=== PATIENT | male | born 1980 | race Caucasian/White ===

== ENCOUNTER 2024-05-02 15:34 | Emergency (ER) | payer SELFPAY ==
[2024-05-02 15:50] VITALS: BP 148/90; PULSE 77; TEMP 36.9; O2SAT 98; BMI 31.3
[2024-05-02] MEDS: TRIAMCINOLONE ACETONIDE 40 MG/ML VIAL IM (16:49)
[2024-05-02] MEDS: KETOROLAC TROMETHAMINE 30 MG/ML VIAL IM (16:49)
--- NOTE | 2024-05-02 18:23 | ED_ITS ---
HPI HPI - General Adult General Chief complaint: Neck Pain/Injury Stated complaint: Neck Pain, Shoulder Pain Time Seen by Provider: 05/02/24 15:57 Source: patient Mode of arrival: walk-in Limitations: no limitations History of Present Illness HPI narrative: 44-year-old male to the emergency department chief complaint of right-sided neck pain. Patient reports he has had this neck pain ongoing for the last month. He has seen his chiropractor to get adjusted several times and it did seem to help. Pain however came back yesterday and seems to be worse than typical. Radiates from the right side of his lower neck into his right shoulder. He denies any numbness, weakness, tingling. No chest pain or shortness of breath. Seems to be worse when he flexes his head forward or to the left. No trauma or injuries. Otherwise at his baseline health. Related Data Previous Rx's ?Medication ?Instructions ?Recorded oxycodone-acetaminophen 5 mg-325 1 tab PO Q6H PRN pain 3 days #12 05/02/24 mg tablet (Percocet) tabs Allergies Allergy/AdvReac Type Severity Reaction Status Date / Time Latex, Natural Rubber AdvReac Severe Rash Verified 05/02/24 15:55 Opioid HPI Opioid Management Most Recent Opioid Data: Last SEP Pain Assessment 05/02/24 16:49 Review of Systems ROS Status of ROS 10 or more systems reviewed and unremark able except as noted in history and below PFSH PFSH Social History Little interest or pleasure in doing things: not at all Feeling down, depressed, or hopeless: not at all Exam Narrative Exam Narrative: VITALS: I have reviewed the triage vital signs. GENERAL: Well developed, well appearing adult in no acute distress. NEURO: Alert and oriented. Moves all extremities. Face is symmetric and expressive. Exhibits Manager strength, finger abduction adduction, sensation intact over the hand. EYES: PERRL. No scleral icterus or conjunctival injection. No discharge. HENT: Normocephalic, atraumatic. Hearing is grossly intact. Nares grossly patent and without discharge. Mucous membranes moist. NECK: No JVD. Patient moves neck without restriction. No midline cervical tenderness CARDIO: Rhythm regular. Normal rate. No murmur, rub, or gallop. Pulses equal bilaterally in the upper and lower extremity. No lower extremity edema. PULM: Lungs clear to auscultation in all garsia. No wheezes, rales, or rhonchi. No conversational dyspnea. No splinting, stridor, or accessory muscle use. GI/: Abdomen is soft and non-tender. Normoactive bowel sounds. EXTREMITIES: Symmetric muscle bulk. No joint swelling. No clubbing, cyanosis, or deformity. SKIN: Warm and dry. Normal turgor. No rash or lesions appreciated. PSYCH: Mood, affect, and interaction is appropriate to the setting. Constitutional Vital Signs, click to edit/add: Last Vital Signs Temp 98.4 F 05/02/24 15:50 Pulse 77 05/02/24 15:50 Resp 20 05/02/24 15:50 BP 148/90 H 05/02/24 15:50 Pulse Ox 98 05/02/24 15:50 O2 Del Method Room Air 05/02/24 15:50 Course Vital Signs Vital signs: Vital Signs Temperature 98.4 F 05/02/24 15:50 Pulse Rate 77 05/02/24 15:50 Respiratory Rate 20 05/02/24 15:50 Blood Pressure 148/90 H 05/02/24 15:50 Pulse Oximetry 98 05/02/24 15:50 Oxygen Delivery Method Room Air 05/02/24 15:50 Temperature 98.4 F 05/02/24 15:50 Pulse Rate 77 05/02/24 15:50 Respiratory Rate 20 05/02/24 15:50 Blood Pressure 148/90 H 05/02/24 15:50 Pulse Oximetry 98 05/02/24 15:50 Oxygen Delivery Method Room Air 05/02/24 15:50 Medical Decision Making [facility] Narrative Medical decision making narrative: 44-year-old male to the emergency department with chief complaint of right-sided neck pain. Vital stable, the patient is afebrile. No trauma. No focal neurologic deficits. No indication for imaging at this time. Kenalog and Toradol shots were given. He will be continued on a short course of Percocet and instructed to use Tylenol or ibuprofen at home. He has muscle relaxers from previous episode. He is given spine surgeon to follow-up with. Return precautions were discussed. All questions were answered. The patient was discharged home Discharge Plan Discharge Chief Complaint: Neck Pain/Injury Clinical Impression: Cervical radiculopathy Patient Disposition: Home, Self-Care Time of Disposition Decision: 16:40 Condition: Good Mode of Transportation: Private Vehicle Prescriptions / Home Meds: New oxycodone-acetaminophen [Percocet] 5-325 mg tablet 1 tab PO Q6H PRN (Reason: pain) 3 Days Qty: 12 0RF Print Language: Khmer Instructions: Cervical Radiculopathy (ED) Additional Instructions: Call the office of your primary care doctor to arrange for follow-up within the above-stated timeframe. Your ED visit was focused on your acute issue and does not replace primary care. You should review your labs, imaging, and diagnoses from this ED visit with your primary care physician. There may be non-emergent/ incidental findings that need further evaluation. You should review your vital signs including blood pressure with your PCP. If you were prescribed medications you should discuss possible side-effects and drug interactions with your pharmacist. Call 911 or go to the nearest Emergency Department if you develop any new or worsening symptoms. Seek immediate medical attention if you develop: worsening headache, nausea, vomiting, confusion, weakness, loss of motion in your arms or legs, loss of control of your urine Referrals: Justine Rivers MD [Physician] - 1 week (Call Dr. Saint Ruth's office to establish follow-up for your neck pain.) MOUNA PAREDES [Primary Care Provider] - 1 week Discharge Date/Time: 05/02/24 16:57
== END 2024-05-02 16:57 | disposition home or self-care (01) ==
PROVIDERS: Emergency Provider Student in an Organized Health Care Education/Training Program; PCP Nurse Practitioner Family
DX: M54.12 Radiculopathy, cervical region (principal)
CPT/HCPCS: 96372; 99284; J1885; J3301

== ENCOUNTER 2025-02-19 02:07 | Emergency (ER) | payer SELFPAY ==
[2025-02-19 02:11] VITALS: BP 159/101; PULSE 74; TEMP 36.6; O2SAT 100; BMI 32.3
--- OUTSIDE RECORDS SUMMARY | 2025-02-19 02:13 | XMS_ITS | CCD ---
Author Organization [facility] Care Team Providers Care Visual Educator Name Role Phone Lana Raymond Unavailable DR DARIN SULLIVAN V Consulting Unavailable [facility], DR CHAMBERLAIN Primary Care Unavailable SHARDA POLANCO Admitting Unavailable SHARDA POLANCO Attending Unavailable ELMER ORDOÑEZ Consulting Unavailable NON STAFF Primary Care Provider UnavailQIANA Champagne Attending Provider NON STAFF Primary Care Unavailable Maida Smith Attending Unavailable Maida Smith Admitting Unavailable Dell Matos MD Primary Care Provider Lana Raymond MD Unavailable [phone] MAIDA SMITH Attending Unavailable RODO PIERRE Attending Unavailable MAIDA SMITH Referring Unavailable Unavailable Primary Care Provider Unavailhilario e Allergies Allergy Classification Reported Allergen(s) Allergy Type Date of Onset Reaction(s) Facility (4 sources) Latex Propensity to adverse reactions bumps on hands with gloves [facility] Other (1 source) Latex Drug allergy (disorder) 3 [facility] Repository Medications Current Medications Medication Drug Class(es) Dates Sig (Normalized) Sig (Original) acetaminophen 325 mg / oxyCODONE hydrochloride 5 mg oral tablet (1 source) Opioid Agonist Start: 4 take 1 tablet by mouth every six hours as needed oxyCODONE-acetaminoph en (Percocet) 5-325 MG tablet TAKE 1 TABLET BY MOUTH EVERY 6 HOURS NEEDED FOR 7 DAYS 05/08/2024 Active [id number] 200 actuat albuterol 0.09 mg/actuat metered dose inhaler (1 source) beta2-Adrenergic Agonist Start: 1 take 2 puff(s) by inhalation every four hours as needed Albuterol Sulfate HFA 108 (90 Base) MCG/ACT 2 puffs as needed Inhalation every 4 hrs May, Active amoxicillin 875 mg oral tablet (2 sources) Penicillin-class Antibacterial Start: 2 take 1 tablet by mouth every eight hours Amoxicillin 875 MG 1 tablet Orally every 8 hrs for 10 day(s) Mar, Active erythromycin 0.005 mg/mg ophthalmic ointment (1 source) Macrolide, Macrolide Antimicrobial Start: 5 Erythromycin 5 mg/gram (0.5 %) ointment Active 1 APPLIC EYE-RIGHT Four times daily 3.5 7 October 16, 2024 12:00am fluocinonide 0.5 mg/ml topical solution (4 sources) Corticosteroid Start: 4 fluocinonide (Lidex) 0.05 % external solution Indications: Other seborrheic dermatitis Apply to affected areas on the scalp, up to twice a day when flared, 30 day supply 60 mL 04/06/2024 Active hydrocortisone 10 mg/ml / neomycin 3.5 mg/ml / polymyxin b [id number] unt/ml otic solution (3 sources) Aminoglycoside Antibacterial, Polymyxin-class Antibacterial, Corticosteroid Start: 2 [id number]-[id number] 4 drops into affected ear Otic Three times a day for 7 day(s) Feb, Active ketoconazole 20 mg/ml topical cream (4 sources) Azole Antifungal Start: 4 ketoconazole (NIZOral) 2 % cream Indications: Other seborrheic dermatitis Apply thin layer to the face, daily, 30 day supply 15 g 04/06/2024 Active methylPREDNISolone 4 mg oral tablet (3 sources) Corticosteroid Start: 2 methylPREDNISolone 4 MG as directed Orally Once a day for 6 days Mar, Active Start: 05-26-2021 methylPREDNISo lone 4 MG as directed Orally Once a day for 6 days May, Active Problems Active Problems Problem Classification Problem Date Documented Da te Episodic/Chronic Abdominal pain (4 sources) Unspecified abdominal pain; Translations: [Left lower quadrant pain] Onset: 2 Episodic Disorders of lipid metabolism (5 sources) Hyperlipidemia; Translations: [Hyperlipidemia, unspecified] 10-16-2024 Chronic Disorders of teeth and jaw (5 sources) Toothache; Translations: [Other specified disorders of teeth and supporting structures] 10-16-2024 Episodic Diverticulosis and diverticulitis (1 source) Diverticulitis of large intestine without perforation or abscess without bleeding; Translations: [DVTRCLI LG INT NO PERF/ABSC W/O BL] Onset: 2 Chronic Esophageal disorders (5 sources) Gastroesophageal reflux disease; Translations: [Gastro-esophageal reflux disease without esophagitis] 10-16-2024 Chronic Essential hypertension (1 source) Hypertensive disorder; Translations: [Essential (primary) hypertension] 10-16-2024 Chronic Gastritis and duodenitis (5 sources) Chronic gastritis; Translations: [Unspecified chronic gastritis without bleeding] 10-16-2024 Chronic Gastrointestinal hemorrhage (1 source) Hematochezia; Translations: [Melena] 10-16-2024 Episodic Joint disorders and dislocations; trauma-related (1 source) Tear of fibrocartilage of joint; Translations: [Unspecified tear of unspecified meniscus, current injury, unspecified knee, initial encounter] 10-16-2024 Episodic Osteoarthritis (5 sources) Traumatic arthropathy-knee; 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, unspecified knee] 10-16-2024 Chronic Other circulatory disease (4 sources) Elevated blood pressure; Translations: [Elevated blood-pressure reading, without diagnosis of hypertension] Episodic Other connective tissue disease (4 sources) Pain in limb; Translations: [Pain in right toe(s)] Episodic Other connective tissue disease (1 source) Pain in toe; Translations: [Pain in right toe(s)] 10-16-2024 Episodic Other ear and sense organ disorders (2 sources) Impacted cerumen, left ear Onset: 2 Resolved: 2 Episodic Other eye disorders (2 sources) Xanthelasma; Translations: [Xanthelasma of unspecified eye, unspecified eyelid] 04-06-2024 Episodic Other inflammatory condition of skin (2 sources) Seborrheic dermatitis; Translations: [Other seborrheic dermatitis] 04-06-2024 Episodic Other non-traumatic joint disorders (4 sources) Shoulder joint pain; Translations: [Pain in right shoulder] Episodic Other non-traumatic joint disorders (1 source) Pain in right shoulder; Translations: [Right shoulder pain] 10-16-2024 Episodic Other skin disorders (4 sources) Skin lesion; Translations: [Disorder of the skin and subcutaneous tissue, unspecified] 10-16-2024 Episodic Other skin disorders (1 source) Other hypertrophic disorders of the skin; Translations: [Other hypertrophic disorders of the skin] Onset: 4 Episodic Other skin disorders (2 sources) Hidradenitis; Translations: [Hidradenitis suppurativa] Onset: 4 05-17-2024 Episodic Other skin disorders (2 sources) Inflamed seborrheic keratosis; Translations: [Inflamed seborrheic keratosis] 04-06-2024 Episodic Other skin disorders (2 sources) Skin tag; Translations: [Other hypertrophic disorders of the skin] 04-06-2024 Episodic Other skin disorders (2 sources) Epidermoid cyst; Translations: [Epidermal cyst] 04-06-2024 Episodic Other upper respiratory infections (5 sources) Chronic sinusitis; Translations: [Chronic sinusitis, unspecified] 10-16-2024 Chronic Otitis media and related conditions (2 sources) Acute serous otitis media, left ear Onset: 2 Resolved: 2 Episodic Spondylosis; intervertebral disc disorders; other back problems (7 sources) Neck pain; Translations: [Cervicalgia] 10-16-2024 Episodic Substance-related disorders (6 sources) Nicotine dependence; Translations: [Nicotine dependence, unspecified, uncomplicated] Onset: 2 10-16-2024 Chronic Viral infection (5 sources) Condyloma ; Translations: [Anogenital (venereal) warts] 10-16-2024 Episodic Past or Other Problems Problem Classification Problem Date Documented Da te Episodic/Chronic Chronic obstructive pulmonary disease and bronchiectasis (1 source) Bronchitis, not specified as acute or chronic Onset: 05-26-2021 Resolved: 05-26-2021 Episodic Immunizations and screening for infectious disease (1 source) Contact with and (suspected) exposure to other viral communicable diseases Onset: 05-26-2021 Resolved: 05-26-2021 Episodic Other ear and sense organ disorders (1 source) Unspecified acute noninfective otitis externa, right ear Onset: 03-23-2022 Resolved: 03-23-2022 Episodic Other skin disorders (1 source) Disorder of the skin and subcutaneous tissue, unspecified Onset: 03-23-2022 Resolved: 03-23-2022 Episodic Viral infection (1 source) COVID-19 Onset: 05-26-2021 Resolved: 05-26-2021 Results Test Name Value Interpretation Reference Range Facility Triglyceride [Mass/Vol]on Interpretation and review of laboratory results Abnormal [facility] Triglyceride [Mass/volume] i n Serum or PlasmaOrdered By: Maida Smith on 04-07-2024 Triglyceride [Mass/Vol] 219 mg/dL High 35-149 [facility] Comment on above: TRIG ATP III CLASSIF ICATIONTRIG less than 150 mg/dL NormalTRIG 150-199 mg/dL Borderline highTRIG 200-500 mg/dL High TRIG greater than 500 mg/dL Very highStandard traceable to the Center for Disease Conrtrol and Prevention (CDC) test method. Result Comment: TRIG ATP III CLASSIFICATION TRIG less than 150 mg/dL Normal TRIG 150-199 mg/dL Borderline high TRIG 200-500 mg/dL High TRIG greater than 500 mg/dL Very high Standard traceable to the Center for Disease Conrtrol and Prevention (CDC) test method. PERFORMED BY: [place] [address] PATHOLOGIST BORDER GUARD TYLOR SONI M.D. Performed By: #### T RIG #### [address] Triglycerideson 04-07-2024 Triglyceride [Mass/Vol] 219 mg/dL High 35 - 149 mg/dL [facility] Comment on above: TRIG ATP III CLASSIF ICATION TRIG less than 150 mg/dL Normal TRIG 150-199 mg/dL Borderline high TRIG 200-500 mg/dL High TRIG greater than 500 mg/dL Very high Standard traceable to the Center for Disease Conrtrol and Prevention (CDC) test method. No Panel Informationon 04-06 [facility] CBC AUTO DIFFon 03-03-2022 BASO # 0.1 103/ul Normal 0.0-0.1 [facility] Comment on above: Performed By: #### C BC #### [facility] [address] [place] [address] Dr. Paula Hassan Basophils/100 WBC (Bld) 0.4 % Normal 0.2-2.0 [facility] Comment on above: Performed By: #### C BC #### [facility] [address] [place] [address] Dr. Paula Hassan EO # 0.1 103/ul Normal 0.0-0.7 [facility] Comment on above: Performed By: #### C BC #### [facility] [address] [place] [address] Dr. Paula Hassan Eosinophils/100 WBC (Bld) 1.0 % Normal 0.9-7.0 [facility] Comment on above: Performed By: #### C BC #### [facility] [address] [place] [address] Dr. Paula Hassan Erythrocyte distribution width (RBC) [Ratio] 12.3 % Normal 11.0-15.0 [facility] Comment on above: Performed By: #### C BC #### [facility] [address] [place] [address] Dr. Paula Hassan Hematocrit (Bld) [Volume fraction] 46.5 % Normal 42.0-54.0 [facility] Comment on above: Performed By: #### C BC #### [facility] [address] [place] [address] Dr. Paula Hassan Hemoglobin (Bld) [Mass/Vol] 15.6 g/dL Normal 14.0-18.0 [facility] Comment on above: Performed By: #### C BC #### [facility] [address] [place] [address] Dr. Paula Hassan IG # 0.05 10e3/ul Critically high 0.00-0.03 [facility] Comment on above: Performed By: #### C BC #### [facility] [address] [place] [address] Dr. Paula Hassan IG % 0.4 % Normal 0.0-0.5 [facility] Comment on above: Performed By: #### C BC #### [facility] [address] [place] [address] Dr. Paula Hassan LYMPH # 2.5 103/ul Normal 1.2-3.8 [facility] Comment on above: Performed By: #### C BC #### [facility] [address] [place] [address] Dr. Paula Hassan Lymphocytes/100 WBC (Bld) 18.5 % Critically low 20.5-60.0 [facility] Comment on above: Performed By: #### C BC #### [facility] [address] [place] [address] Dr. Paula Hassan MANUAL DIFF REQ NO Normal [facility] Comment on above: Performed By: #### C BC #### [facility] [address] [place] [address] Dr. Paula Hassan MCH (RBC) [Entitic mass] 29.9 pg Normal 25.9-34.0 [facility] Comment on above: Performed By: #### C BC #### [facility] [address] [place] [address] Dr. Paula Hassan MCHC (RBC) [Mass/Vol] 33.5 g/dL Normal 29.9-35.2 [facility] Comment on above: Performed By: #### C BC #### [facility] [address] [place] [address] Dr. Paula Hassan MCV (RBC) [Entitic vol] 89.3 fL Normal 80.0-94.0 [facility] Comment on above: Performed By: #### C BC #### [facility] [address] [place] [address] Dr. Paula Hassan MONO # 1.0 103/ul Critically high 0.3-0.8 [facility] Comment on above: Performed By: #### C BC #### [facility] [address] [place] [address] Dr. Paula Hassan Monocytes/100 WBC (Bld) 7.7 % Normal 1.7-12.0 [facility] Comment on above: Performed By: #### C BC #### [facility] [address] [place] [address] Dr. Paula Hassan NEUT # 9.8 103/ul Critically high 1.4-6.5 [facility] Comment on above: Performed By: #### C BC #### [facility] [address] [place] [address] Dr. Paula Hassan Neutrophils/100 WBC (Bld) 72.0 % Normal 43.0-75.0 [facility] Comment on above: Performed By: #### C BC #### [facility] [address] [place] [address] Dr. Paula Hassan Platelet mean volume (Bld) [Entitic vol] 9.7 fL Normal 9.5-13.5 [facility] Comment on above: Performed By: #### C BC #### [facility] [address] [place] [address] Dr. Paula Hassan PLT 389 103/ul Normal 150-450 [facility] Comment on above: Performed By: #### C BC #### [facility] [address] [place] [address] Dr. Paula Hassan RBC 5.21 106/ul Normal 4.70-6.10 [facility] Comment on above: Performed By: #### C BC #### [facility] [address] [place], [place] [id number] Dr. Paula Hassan WBC 13.6 103/ul Critically high 4.0-11.0 [facility] Comment on above: Performed By: #### C BC #### [facility] [address] [place] [address] ABD/PELVIS WO CONon 03-03 CT ABD/PELVIS WO CON EXAMINATION: CT ABD/PELVIS WO CON, 03/03/2022 1:40 PM EDT HISTORY: Left lower quadrant pain COMPARISON: None. TECHNIQUE: CT scan of the abdomen and pelvis was performed without IV contrast. CT dose reduction technique was used, including Automated Exposure Control. FINDINGS: LUNG BASES: No visible pulmonary or pleural disease. LIVER: Diffuse hypoattenuation consistent with hepatic steatosis. Focal sparing at the gallbladder fossa BILIARY: No dilatation or calcification. PANCREAS: No lesion, fluid collection, ductal dilatation, or atrophy. SPLEEN: No enlargement or focal lesion. ADRENALS: No mass or enlargement. KIDNEYS: No mass, obstruction, or calcification. BOWEL/MESENTERY: Wall thickening of the mid sigmoid colon with mesenteric stranding and a small amount of fluid in the left paracolic gutter. Underlying mild diverticulosis. Nonobstructive bowel gas pattern. Surgical clips likely from prior appendectomy. AORTA/VASCULAR: No aortic aneurysm. Mild atherosclerosis. RETROPERITONEUM: No mass or adenopathy. LYMPH NODES: No adenopathy. URINARY BLADDER: No visible focal wall thickening, lesion, or calculus. PELVIC ORGANS: No visible mass. Pelvic organs appropriate for patient age. ABDOMINAL WALL: No mass or hernia. BONES: No bony lesion or fracture. OTHER: Negative. IMPRESSION: Sigmoid colon diverticulitis. No focal abscess collection is observed Hepatic steatosis Electronically authenticated by: DARIN SULLIVAN Date: 2022-03-03 14:25 Normal [facility] LIPASEon 03-03-2022 Lipase [Catalytic activity/Vol] 108.0 U/L Normal 73.0-393.0 [facility] Comment on above: Performed By: #### C MP, LIPA #### [facility] [address] [place] [address] Dr. Paula Hassan PROF 14(COMP METB)on 022 Albumin [Mass/Vol] 3.6 g/dL Normal 3.4-5.0 [facility] Comment on above: Performed By: #### C MP, LIPA #### [facility] [address] [place] [address] Dr. Paula Hassan Albumin/Globulin [Mass ratio] 0.8 {ratio} Normal [facility] Comment on above: Performed By: #### C MP, LIPA #### [facility] [address] [place] [address] Dr. Paula Hassan ALP [Catalytic activity/Vol] 97 U/L Normal 46-116 [facility] Comment on above: Performed By: #### C MP, LIPA #### [facility] [address] [place] [address] Dr. Paula Hassan ALT [Catalytic activity/Vol] 23 U/L Normal 16-63 [facility] Comment on above: Performed By: #### C MP, LIPA #### [facility] [address] [address] [address] Paula Hassan Anion gap [Moles/Vol] 12.3 mmol/L Normal [facility] Comment on above: Performed By: #### C MP, LIPA #### [facility] [address] [address] [address] Paula Hassan AST [Catalytic activity/Vol] 11 U/L Critically low 15-37 [facility] Comment on above: Performed By: #### C MP, LIPA #### [facility] [address] [place] [address] Dr. Paula Hassan Bilirubin [Mass/Vol] 0.9 mg/dL Normal 0.2-1.0 [facility] Comment on above: Performed By: #### C MP, LIPA #### [facility] [address] [place] [address] Dr. Paula Hassan Calcium [Mass/Vol] 9.1 mg/dL Normal 8.5-10.1 [facility] Comment on above: Performed By: #### C MP, LIPA #### [facility] [address] [place] [address] Dr. Paula Hassan Chloride [Moles/Vol] 100 mmol/L Normal 98-107 [facility] Comment on above: Performed By: #### C MP, LIPA #### [facility] [address] [place] [address] Dr. Paula Hassan CO2 [Moles/Vol] 24.5 mmol/L Normal 21.0-32.0 [facility] Comment on above: Performed By: #### C MP, LIPA #### [facility] [address] [place] [address] Dr. Paula Hassan Creatinine [Mass/Vol] 1.12 mg/dL Normal 0.70-1.30 [facility] Comment on above: Performed By: #### C MP, LIPA #### [facility] [address] [place] [address] Dr. Paula Hassan EGFR-AF CANADIAN >60 Normal >=60 [facility] Comment on above: Performed By: #### C MP, LIPA #### [facility] [address] [address] [address] Paula Hassan EGFR-NON AF CANADIAN >60 Normal >=60 [facility] Comment on above: Performed By: #### C MP, LIPA #### [facility] [address] [address] [address] Paula Hassan Globulin (S) [Mass/Vol] 4.5 g/dL Normal [facility] Comment on above: Performed By: #### C MP, LIPA #### [facility] [address] [address] [address] Paula Hassan Glucose [Mass/Vol] 135 mg/dL Critically high 74-106 [facility] Comment on above: Performed By: #### C MP, LIPA #### [facility] [address] [place] [address] Dr. Paula Hassan Potassium [Moles/Vol] 3.8 mmol/L Normal 3.5-5.1 [facility] Comment on above: Performed By: #### C MP, LIPA #### [facility] [address] [place] [address] Dr. Paula Hassan Protein [Mass/Vol] 8.1 g/dL Normal 6.4-8.2 [facility] Comment on above: Performed By: #### C MP, LIPA #### [facility] [address] [place] [address] Dr. Paula Hassan Sodium [Moles/Vol] 133 mmol/L Critically low 136-145 [facility] Comment on above: Performed By: #### C MP, LIPA #### [facility] [address] [address] [address] Paula Hassan Urea nitrogen [Mass/Vol] 10.0 mg/dL Normal 7.0-18.0 [facility] Comment on above: Performed By: #### C MP, LIPA #### [facility] [address] [place] [address] Dr. Paula Hassan Urea nitrogen/Creatinine [Mass ratio] 8.9 mg/mg Normal [facility] Comment on above: Performed By: #### C MP, LIPA #### [facility] [address] [place] [address] Dr. Paula HARDEN Quick Testingon 2020 Result Positive [facility] Other Vital Signs Date Time Vital Sign Value Performing Clinician Facility 10-16-2024 10:45-0400 Body height 180.[address] [facility] 10-16-2024 10:45-0400 Body mass index (BMI) [Ratio] 31.9 kg/m2 [facility] 10-16-2024 10:45-0400 Body temperature 98.1 [degF] [facility] 10-16-2024 10:45-0400 Body weight 103.[address] [facility] 10-16-2024 10:45-0400 Diastolic blood pressure 87 mm[Hg] [facility] 10-16-2024 10:45-0400 Heart rate 74 /min [facility] 10-16-2024 10:45-0400 Respiratory rate 18 /min [facility] 10-16-2024 10:45-0400 SaO2% (BldA) [Mass fraction] 99 % [facility] 10-16-2024 10:45-0400 Systolic blood pressure 132 mm[Hg] [facility] 05-17-2024 10:11-0400 Body height 179.1 cm [employer] Work Phone: [facility] 05-17-2024 10:11-0400 Body mass index (BMI) [Ratio] 30.67 kg/m2 [employer] Work Phone: [facility] 05-17-2024 10:11-0400 Body weight 98.34 kg [employer] Work Phone: [facility] 05-17-2024 10:11-0400 Diastolic blood pressure 98 mm[Hg] [employer] Work Phone: [facility] 05-17-2024 10:11-0400 Systolic blood pressure 144 mm[Hg] [employer] Work Phone: [facility] 04-13-2022 17:55-0400 Body height 177.8 cm Lana Lopezault Other [facility] Other 04-13-2022 17:55-0400 Body mass index (BMI) [Ratio] 32.14 kg/m2 Lana Raymond Other [facility] Other 04-13-2022 17:55-0400 Body temperature 97.9 [degF] Lana Raymond Other [facility] Other 04-13-2022 17:55-0400 Body weight 101.61 kg Lana Raymond Other [facility] Other 04-13-2022 17:55-0400 Diastolic blood pressure 92 mm[Hg] Lana Lopezault Other [facility] Other 04-13-2022 17:55-0400 Respiratory rate 16 /min Lana Lopezault Other [facility] Other 04-13-2022 17:55-0400 SaO2% (BldA) [Mass fraction] 99 % Lana Lopezault Other [facility] Other 04-13-2022 17:55-0400 Systolic blood pressure 129 mm[Hg] Lana Lopezault Other [facility] Other 03-23-2022 15:30-0400 Body height 177.8 cm Lana Lopezault Other [facility] Other 03-23-2022 15:30-0400 Body mass index (BMI) [Ratio] 32.14 kg/m2 Lana Raymond Other [facility] Other 03-23-2022 15:30-0400 Body temperature 97.6 [degF] Lana Raymond Other [facility] Other 03-23-2022 15:30-0400 Body weight 101.61 kg Lana Raymond Other [facility] Other 03-23-2022 15:30-0400 Diastolic blood pressure 77 mm[Hg] Lana Raymond Other [facility] Other 03-23-2022 15:30-0400 Respiratory rate 16 /min Lana Raymond Other [facility] Other 03-23-2022 15:30-0400 SaO2% (BldA) [Mass fraction] 99 % Lana Raymond Other [facility] Other 03-23-2022 15:30-0400 Systolic blood pressure 137 mm[Hg] Lana Raymond Other [facility] Other 05-26-2021 15:00-0400 Body height 177.8 cm Lana Raymond Other [facility] Other 05-26-2021 15:00-0400 Body mass index (BMI) [Ratio] 32.28 kg/m2 Lana Raymond Other [facility] Other 05-26-2021 15:00-0400 Body temperature 97.5 [degF] Lana Lopezault Other [facility] Other 05-26-2021 15:00-0400 Body weight 102.06 kg Lana Raymond Other [facility] Other 05-26-2021 15:00-0400 SaO2% (BldA) [Mass fraction] 98 % Lana Raymond Other [facility] Other Encounters Encounter Date Encounter Type Care Provider Facility Start: 10-16-2024 End: 10-16-2024 ambulatory [facility] Work Phone: Start: 10-16-2024 End: 10-16-2024 Patient encounter procedure [facility] Work Phone: Start: 05-17-2024 End: 05-17-2024 Office outpatient new 45 minutes Rodo Pierre DO Work Phone: [facility] Comment on above: Hidradenitis Start: 05-17-2024 End: 05-17-2024 ambulatory RODO PIERRE Not Available Start: 04-07-2024 End: 04-07-2024 External Result Encounter Maida A Felter MATERIALS MANAGEMENT MANAGER-[employer] Work Phone: [facility] Unsolicited Start: 04-07-2024 End: 04-07-2024 External Result Encounter Maida A Felter MATERIALS MANAGEMENT MANAGER-[employer] PROFESS[employer] Work Phone: [facility] Unsolicited Start: 04-07-2024 End: 04-07-2024 Patient encounter procedure [facility] [place] Work Phone: Start: 04-07-2024 End: 04-07-2024 ambulatory NON STAFF [facility] Work Phone: Start: 04-06-2024 End: 04-06-2024 Bamboo flowsheet Maida A Felter MATERIALS MANAGEMENT MANAGER-[employer] PROFESSOR Work Phone: [facility] Start: 04-06-2024 End: 04-06-2024 Bamboo flowsheet Maida A Felter MATERIALS MANAGEMENT MANAGER-[employer] PROFESSOR Work Phone: [facility] Start: 04-06-2024 End: 04-06-2024 ambulatory MAIDA SMITH Not Available Start: 04-06-2024 End: 04-06-2024 Office outpatient visit 15 minutes Maida Smith MATERIALS MANAGEMENT MANAGER-[employer] PROFESSOR Work Phone: [facility] Comment on above: Seborrheic keratosis , inflamed; Other seborrheic dermatitis; Inflamed skin tag; Xanthelasma; EIC (epidermal inclusion cyst) Start: 04-13-2022 End: 04-13-2022 ambulatory Lana Mandi Other [facility] Other Start: 04-13-2022 Office outpatient vi sit 25 minutes Lana Mandi [facility] Start: 03-23-2022 End: 03-23-2022 ambulatory Lana Raymond Other [facility] Other Start: 03-23-2022 Office outpatient vi sit 15 minutes Lana Mandi [facility] Start: 03-03-2022 End: 03-03-[address] DARIN SULLIVAN Facility:[facility] Start: 05-26-2021 End: 05-26-2021 ambulatory Lana Mandi Other [facility] Other Start: 05-26-2021 Office outpatient vi sit 15 minutes Lana Mandi [facility] Procedures Date Procedure Procedure Detail Performing Clinician Start: 04-07-2024 Assay of triglycerides Maida Smith MATERIALS MANAGEMENT MANAGER-[employer] PROFESSOR Work Phone: Start: 04-06-2024 CRYOTHERAPY SKIN LESION Maida Smith MATERIALS MANAGEMENT MANAGER-[employer] PROFESSOR Work Phone: Plan of Treatment Date Care Activity Detail Author Start: 04-09-2025 End: 04-09-2025 Patient encounter procedure 04/09/2025 1:00 PM EDT Office Visit [facility] [address] [place] [address] Maida Smith, MATERIALS MANAGEMENT MANAGER-[employer] HISTORY PROFESSOR [address] [place] [address] [facility] Start: 04-06-2024 End: 04-06-2025 Triglyceride [Mass/volume] in Serum or Plasma Triglycerides Lab Routine Inflamed skin tag Expected: 04/06/2024 (Approximate), Expires: 04/06/2025 [facility] Work Phone: Comment on above: Expected: 04/06/2024 (Approximate), Expires: 04/06/2025 Payers Date Payer Category Payer Self-pay [id number] 1980 Unknown [id number] 1959 Unknown [id number] Medicaid Medicaid [id number] Unknown [place] KAYLA [id number] Unknown [id number] Social History Date Type Detail Facility Unknown if ever smoked [facility] Other Start: 04-06-2024 End: 05-17-2024 Sex Assigned At [facility] Other Start: 04-07-2024 End: 10-16-2024 Tobacco smoking status [facility] Smoker (finding) [facility] Start: 1980 Sex Assigned At Male [facility] Start: 05-17-2024 Tobacco smoking status [facility] Smokes tobacco daily [facility] Work Phone: History of tobacco use Cigarette Smoker [facility] Start: 04-06-2024 End: 05-17-2024 Tobacco use and exposure Smokeless tobacco non-user [facility] Start: 05-17-2024 Alcoholic beverage intake Ex-drinker (finding) [facility] Start: 04-06-2024 End: 05-17-2024 History of Social function [facility] Start: 1980 Sex assigned at Not on file [facility] Tobacco smoking status [facility] Tobacco smoking consumption unknown [facility] Start: 04-06-2024 Tobacco smoking status [facility] Never smoked tobacco [facility] Start: 10-16-2024 Sex Male (finding) [facility] History of Present illness Narrative 05-17-2024 Rodo Pierre, DO - 05/17/2024 10:15 AM EDT Note Date & Type Note Facility 05-17-2024 History of Presen t illness Narrative Images from the original note were not included. Daniel Garay 1980 Daniel Garay is a 44 y.o. male presents with chief complaint of Consult (Buttock cyst) HPI: HPI Patient has had episodes of cysts or lumps in his inner thighs near the perineum. Said about 2 weeks ago it was pretty bad it has resolved. It will swell a little bit and turned firm but it never has any drainage. He has never been on any antibiotics for this. He said it happens about 2 times per year for a couple years. He does smoke about half pack to a pack of cigarettes per day. He is borderline diabetic or did have elevated sugars and was told that if his numbers were better he was going to be put on medication this winter. These areas are basically resolved currently. He does not get this at any other location. He would like to quit smoking, he says it is very difficult to do. He said that he was the quit drinking pop and he quit using cocaine without any problems But smoking is much harder. SUBJECTIVE: MEDICATIONS: ALLERGIES Current Outpatient Medications Medication Instructions fluocinonide (Lidex) 0.05 % external solution Apply to affected areas on the scalp, up to twice a day when flared, 30 day supply ketoconazole (NIZOral) 2 % cream Apply thin layer to the face, daily, 30 day supply oxyCODONE-acetaminophen (Percocet) 5-325 MG tablet TAKE 1 TABLET BY MOUTH EVERY 6 HOURS NEEDED FOR 7 DAYS No Known Allergies PAST MEDICAL HISTORY: SOCIAL HISTORY SURGICAL HISTORY: No past medical history on file. Social History Tobacco Use Smoking status: Never Smokeless tobacco: Never No past surgical history on file. REVIEW OF SYMPTOMS: Review of Systems Constitutional: Negative for appetite change and fatigue. HENT: Negative for trouble swallowing. Respiratory: Negative for cough and shortness of breath. Cardiovascular: Negative for chest pain. Gastrointestinal: Negative for abdominal pain. Genitourinary: Negative for hematuria. Musculoskeletal: Negative for arthralgias. Neurological: Negative for seizures. Hematological: Negative for adenopathy. OBJECTIVE: Visit Vitals BP (!) 144/98 Ht 5' 10.5 Wt 216 lb 12.8 oz BMI 30.67 kg/m Smoking Status Never BSA 2.21 m Physical Exam Constitutional: Appearance: Normal appearance. He is not ill-appearing. HENT: Head: Atraumatic. Eyes: General: No scleral icterus. Cardiovascular: Rate and Rhythm: Regular rhythm. Heart sounds: Normal heart sounds. Pulmonary: Breath sounds: No wheezing. Genitourinary: Comments: In her groin bilaterally near the perineum there is a small palpable granuloma 2 on the right and 1 on the left without any cellulitis or induration or pain, these are small. There is no draining fistulas Musculoskeletal: Right lower leg: No edema. Left lower leg: No edema. Neurological: Mental Status: He is alert. ASSESSMENT AND PLAN: Assessment/Plan Diagnoses and all orders for this visit: Hidradenitis - Ambulatory referral to General Surgery Hidradenitis versus folliculitis at bilateral inner thighs near perineum. Have never drained nor fistulized nor have they received any antibiotics. Only have acted up about 2 times per year. I discussed with him this entity and management options. Surgery is more the last line option. First line therapy would always be smoking cessation. Smoking and hidradenitis is a bad combination and will cause that to worsen. By getting rid of smoking alone with his very mild symptoms he may completely improve that. Additionally getting his sugars under control and controlling that either by lifestyle and weight loss versus medication would be important to help soft tissue infections as well. Excision of these is usually last line therapy and is very prone to having dehiscence of incisions or recurrence of lesions in nearby locations. Hidradenitis can be treated medically as well although with his very minimal symptoms would not recommend at present. We discussed smoking cessation and its benefits in detail. documented in this encounter [facility] History of Present illness Narrative 04-06-2024 Maida Smith, MATERIALS MANAGEMENT MANAGER-[employer] PROFESSOR - 04/06/2024 1:10 PM EDT Note Date & Type Note Facility 04-06-2024 History of Presen t illness Narrative Dry Skin Location: Scalp/bread Duration: Few months Associated Factors: itchy, flaky Established patient Lesions: Location: Buttock Duration: Few months Quality: painful, denies itch, denies bleeding Associated symptoms: non-healing, red Treatments: none Lesion # 2: Location: lower abdomen Duration: 1 year Quality: denies pain, denies itch, denies bleeding Modifying factors: aggravated by picking Associated symptoms: rough, scaly Treatments: LN2 x 1 All pertinent medical history, medications, and allergies were reviewed. General Exam: alert , oriented to person, place, and time , normal affect, well appearing Unaccompanied A focused exam completed based on patient reported problems, see below: 1. Seborrheic keratosis, inflamed Left Inguinal Area Rio and brown stuck on verrucous scaly papule with surrounding erythema The patient was informed that symptomatic seborrheic keratoses are benign growths that become inflamed, itchy, tender, traumatized, caught on clothing, or bleed. Symptomatic lesions can be treated with cryotherapy or curretage. Thicker lesions treated with cryotherapy may require more than one treatment. The patient was instructed to notify the office if abnormal redness or tenderness develops at the treatment site. Cryotherapy today, see procedure note. Diagnosis: Inflamed seborrheic keratosis Indication: Inflamed Consent: Verbal consent was obtained and risks were discussed, including, but not limited to risks of scarring, darker or biotech production specialist pigmentary changes, recurrence, incomplete removal and infection. Method: Liquid nitrogen was used to treat the lesion(s) with two 5-10 second freeze-thaw cycles Number of lesions treated: 1 Post-procedure instructions: Instructions were given orally and in writing. The office will be contacted if the lesion fails to resolve despite treatment, or if a side effect develops such as abnormal crusting, scabbing, redness or tenderness Cryotherapy, skin lesion - Left Inguinal Area 2. Other seborrheic dermatitis Left Buccal Cheek, Mid Parietal Scalp, Right Buccal Cheek, Right Oral Commissure Erythema and scale. Flaring today Discussed that seborrheic dermatitis is a chronic condition that can be controlled but not cured. Start ketoconazole cream on face daily as needed for flare, hold when clear. Start fluocinonide solution daily. Notify office if flaring despite treatment. Related Medications ketoconazole (NIZOral) 2 % cream Apply thin layer to the face, daily, 30 day supply fluocinonide (Lidex) 0.05 % external solution Apply to affected areas on the scalp, up to twice a day when flared, 30 day supply 3. Inflamed skin tag (2) Pubic (2) Fleshy, skin-colored sessile and pedunculated papules with surrounding erythema The patient was informed that skin tags are benign growths usually found around the neck or in the axillae. Due to symptoms/inflammation, removal performed today, see procedure note. Procedure: Skin tag removal Informed consent: Discussed risks (permanent scarring, infection, pain, bleeding, bruising, redness, and recurrence of the lesion) and benefits of the procedure, as well as the alternatives. He is aware that skin tags are benign lesions, and their removal is often not considered medically necessary. Informed consent was obtained and waiver was signed if needed. The area was prepared and draped in a standard fashion. LN2 was performed. The patient tolerated procedure well. The patient was instructed on post-op care. Number of lesions removed: 2 Related Procedures Triglycerides 4. Xanthelasma Left Upper Eyelid Pearly papules Triglycerides ordered today. Patient informed not to drink or eat anything other than water 8 hours prior to lab draw. 5. EIC (epidermal inclusion cyst) Gluteal Crease erythematous, subcutaneous nodule Patient was counseled regarding cysts. Although benign, cysts often slowly enlarge and can occasionally become inflamed. Discussed the only way to definitively diagnose the lesion would be to have it removed and tested. Discussed treatment options including observation vs. excision. Patient elected for excision. Due to location of cyst, referral to Dr. Johnson sent. Related Procedures Ambulatory referral to Plastic Surgery Next Visit: 1 year documented in this encounter [facility] Evaluation note 04-13-2022 Note Date & Type Note Facility 04-13-2022 Evaluation note Encounter Date Diagnosis Assessment Notes Mar, Impacted cerumen of left ear (ICD-10 - H61.22) Ear wax removal completed in office today. Recommend Debrox ear drops as directed in box to prevent future impaction as well as refraining from using Q-tips or other objects to clear out ears. Follow up with PCP or ENT if no improvement of symptoms or symptom return Mar, Non-recurren t acute serous otitis media of left ear (ICD-10 - H65.02) Ear infections are often a secondary infection caused from an URI, the flu or allergies. Take medication as directed. Complete all doses, even if you feel better. Tylenol or ibuprofen can help with pain. Warm pack to area for comfort helps as well. Follow up with primary care provider if no improvement of symptoms. [facility] Other Evaluation note 03-23-2022 Note Date & Type Note Facility 03-23-2022 Evaluation note Encounter Date Diagnosis Assessment Notes Feb, Acute otitis externa of right ear, unspecified type (ICD-10 - H60.501) Use drops as directed. May use cotton ball to keep drops in place. Do not use any qtips or any other objects to clean out ears. Do not recommend swimming or baths while treatment going on; may shower If you wear in ear style headphones - recommend cleaning them with alcohol between each use, changing ear plugs frequently. Feb, Skin lesion (ICD-10 - L98.9) [facility] Other Evaluation note 05-26-2021 Note Date & Type Note Facility 05-26-2021 Evaluation note Encounter Date Diagnosis Assessment Notes May, Contact with and (suspected) exposure to other viral communicable diseases (ICD-10 - Z20.828) May, COVID-19 (ICD-10 - U07.1) Today you tested positive for the COVID virus. This mean you need to follow all CDC quarantine guidelines found at coronavirus.[place].gov. It is important to rest, increase fluids, and stay at home. Contact PCP and inform them of results. Medications like Mucinex, Cepacol, Tylenol, saline nasal spray are over the counter medications that can help with the symptoms. Current guidelines include staying home for at least 10 days, having no fever above 100.4 for 24 hours without medication and having significant improvement of symptoms before you are allowed to stop your quarantine. Contact primary care and ask for guidance is essential to follow up May, Bronchitis (ICD-10 - J40) Take medications as directed. Rest and increase fluid intake. Take meds with food to prevent stomach upset. Use inhaler as needed for coughing spells and SOB. It is better to use inhaler a few times a day over the next 2-3 days. Follow up with primary care provider if symptoms do not improve with treatment plan, although it may take a few weeks for the cough to go away May, Other Additional time spent conducting pre-visit phone call, screening for symptoms, instructions on social distancing, application and removal of PPE, and cleaning of examination room, equipment and supplies was preformed. Patient education given for testing methodology and results. Patient care instructions given in writting by [facility] Care At Home document. [facility] Other History general Narrative - Reported 08-31-2014 Note Date & Type Note Facility 08-31-2014 History general N arrative - Reported Type Medical History CT A/P w/o contrast (08-31-14) Medical History Blood in stool Medical History Acute torn meniscus Medical History lumbar pain Surgical History appendectomy (in high school) Surgical History right knee (torn meniscus) 09/12 Surgical History Colonoscopy and EGD Dr. Reynoso, normal repeat in 10 yrs. 10-16-14 Hospitalization History see above [facility] Other Evaluation note Note Date & Type Note Facility Evaluation note No assessment information availa [facility] Work Phone: Evaluation note Note Date & Type Note Facility Evaluation note Diagnosis Hidradenitis documented in this encounter [facility] Evaluation note Note Date & Type Note Facility Evaluation note Diagnosis Seborrheic keratosis, inflamed Other seborrheic dermatitis Inflamed skin tag Xanthelasma Mixed hyperlipidemia EIC (epidermal inclusion cyst) Sebaceous cyst documented in this encounter [facility] Reason for referral (narrative) Consultation (Routine) - Pending Review Note Date & Type Note Facility Reason for referral (narrati ve) Specialty Diagnoses / Procedures Referred By Contelliot t Referred To Contact Plastic Surgery Diagnoses EIC (epidermal inclusion cyst) Procedures DE OFFICE/OUTPATIENT NEW HIGH MDM 60 MINUTES Maida Smith APRN-CNP [address] [place] [address] Isaias Johnson MD [address] [facility] [address] [place] [address] Referral ID Status Reason Start Date Expiration Date Visits Requested Visits Authorized [id number] Pending Review Specialty Services Required 04/06/2024 10/03/2024 1 1 [facility] Summary Purpose Family History Relationship Condition Age at Onset Recorded Date/T adwoa aunt Diabetes mellitus Unknown Heart disease Unknown aunt Malignant neoplasm Unknown Unknown father Hypertension Unknown Diabetes mellitus Unknown family member Family history of other condition Unknow n grandparent History of stroke Unknown Hypertension Unknown grandparent Diabetes mellitus Unknown Malignant neoplasm Unknown History of stroke Unknown grandparent Unknown mother Diabetes mellitus Unknown Advance Directives Advance Directive Response Recorded Date/ Time Advance Directives No December 02 12:10pm Advance Directive Response Recorded Date/ Time Advance Directives No May 3:15pm Reason for Referral Reason *FU 04/03 changed lesion on left arm Diagnosis 1 Acute otitis externa of right ear, unspecified type (H60.501) Diagnosis 2 Skin lesion (L98.9) Referral Organization [facility] Referring Provider First Name Lana Referring Provider Last Name Mandi Referring Provider Specialty Nurse Lila leblanc Referred Organization [facility] Referred Provider Adrian Mata Referred Address ,[place], [place],[address] Referred Provider Specialty Dermatology Referral Priority Routine General Notes , Alexandra 022 07:15:11 AM >Received today and waiting for office notes to be locked before sending [facility], Alexandra 03/24/2022 01:00:22 PM >[facility] office request us to send the referral P2P to them and they will call and schedule patient. Referral was sent P2P Chief Complaint and Reason for Visit Chief Complaint L91.8 Chief Complaint Admit Date right eye irritation October 16, 2024 10 :27am Additional Source Comments REASON FOR VISIT (unrecogniz ed section and content) Reason Comments Consult Buttock cyst Specialty Diagnoses / Procedures Referred By Janette t Referred To Contact General Surgery Diagnoses EIC (epidermal inclusion cyst) Procedures DE OFFICE/OUTPATIENT NEW HIGH MDM 60 MINUTES Maida Smith, MATERIALS MANAGEMENT MANAGER-[employer] HISTORY PROFESSOR [address] [place] [address] Phone: tel: fax: Rodo Pierre, DO [address] [place] [address] Phone: tel: fax: Referral ID Status Reason Start Date Expiration Date V isits Requested Visits Authorized [id number] Closed Specialty Services Required 04/18/2024 10/15/2024 1 1 Reason Comments Dry skin (unrecognized sect ion and content) No Status Records FoundNo Status Records FoundNo Status Records Found INFORMATION SOURCE (unrecogn ized section and content) DATE CREATED AUTHOR 03/05/2022 [facility] DATE CREATED AUTHOR AUTHOR'S ORGANIZ ATION 04/21/2024 [facility] DATE CREATED AUTHOR AUTHOR'S ORGANIZ ATION 05/18/2024 [facility] EPIC Care Teams (unrecognized sec tion and content) Team Status: Active Member Role Status Dates NON STAFF Primary Care Provider Active Team Status: Inactive Member Role Status Dates NON STAFF Primary Care Provider Active Start: April 07, 2024 End: April 07, 2024 Maida Smith NP Attending Provider Active St art: April 07, 2024 End: April 07, 2024 Visual Educator Relationship Specialty Start Date End Date Dell Matos MD [address] [place] [id number] PCP - General Family Medicine 05/17/24 Lana Raymond MD [address] [place] [address] [place] [id number] Referring Physician 05/17/24 Team Status: Active Member Role Status Dates Lana Raymond [facility] Primary Care Provider Activ e Team Status: Inactive Member Role Status Dates Lana Raymond [facility] Primary Care Provider Activ e Start: October 16, 2024 End: October 16, 2024 Loretta Jerez APRN Attending Provider Active Start: October 16, 2024 End: October 16, 2024 Goals (unrecognized section and content) Goals may be documented in a n alternate section FOR RECORDS PERTAINING TO PATIENTS WHO ARE OR HAVE BEEN ENROLLED IN A CHEMICAL DEPENDENCY/SUBSTANCEABUSE PROGRAM, SOME INFORMATION MAY BE OMITTED. This clinical summary was aggregated from multiple sources. Caution should be exercised in using it in the provision of clinical care. This summary normalizes information from multiple sources, and as a consequence, information in this document may materially change the coding, format and clinical context of patient data. In addition, data may be omitted in some cases. CLINICAL DECISIONS SHOULD BE BASED ON THE PRIMARY CLINICAL RECORDS. [employer] provides no warranty or guarantee of the accuracy or completeness of information in this document.
--- OUTSIDE RECORDS SUMMARY | 2025-02-19 02:14 | XMS_ITS | Clinical Summary ---
Author Organization [facility] Healthcare Address [address] [place] [address] Care Team Providers Care Yeast Pusher Name Role Phone Dell Matos MD Primary Care Provider [phone] Lana Raymond NP Unavailable [phone] Allergies No known active allergies Medications ketoconazole (NIZOral) 2 % creamIndication s:Other seborrheic dermatitis Apply thin layer to the face, daily, 30 day supply 15 g 11 04/06/2024 Active fluocinonide (Lidex) 0.05 % external solutionIndicat ions:Other seborrheic dermatitis Apply to affected areas on the scalp, up to twice a day when flared, 30 day supply 60 mL 11 04/06/2024 Active oxyCODONE-aceta minophen (Percocet) 5-325 MG tablet TAKE 1 TABLET BY MOUTH EVERY 6 HOURS NEEDED FOR 7 DAYS 05/08/2024 Active Active Problems Problem Noted Date Diagnosed Date Hidradenitis 05/17/2024 Family History Relation Name Status Comments Father Alive Mother Alive Sister 2 Social History Tobacco Use Types Packs/Day Years Used Date Smoking Tobacco: Every Day Cigarettes Smokeless Tobacco: Never Tobacco Cessation:Ready to Q uit: Not Asked; Counseling Given: Not Answered Alcohol Use Standard Drinks/Week Comments Not Currently 0 (1 standard drink = 0.6 oz pur e alcohol) Sex and Gender Information Value Date Recorded Sex Assigned at Not on file Legal Sex Male 7:25 PM EDT Gender Identity Not on file Sexual Orientation Not on file Last Filed Vital Signs Vital Sign Reading Time Taken Comments Blood Pressure 144/98 05/17/2024 10:11 AM EDT Pulse - - Temperature - - Respiratory Rate - - Oxygen Saturation - - Inhaled Oxygen Concentration - - Weight 98.3 kg (216 lb 12.8 oz) 024 10:11 AM EDT Height 179.1 cm (5' 10.5 ) 05/17/2024 1 0:11 AM EDT Body Mass Index 30.67 05/17/2024 10:11 AM EDT Plan of Treatment Upcoming Encounters Date Type Department Care Team (Late st Contact Info) Description 04/09/2025 1:00 PM EDT Office Visit [facility] [address] [place] [address] Maida Smith, ORTHOPEDIC SHOE FITTER-DISTANCE LEARNING TECHNICIAN [address] [place] [address] Care Teams Yeast Pusher Relationship Specialty Start Date End Date Dell Matos MD [address] [place] [id number] PCP - General Family Medicine 05/17/24 Lana Raymond NP [address] [place] [address] [place] [id number] Referring Physician 05/17/24
--- OUTSIDE RECORDS SUMMARY | 2025-02-19 02:14 | XMS_ITS | Clinical Summary ---
Author Organization [facility] Address [id number] [place] [address] Care Team Providers Care Lumber Stacker Name Role Phone Unavailable Primary Care Provider Unavailabl e Social History Tobacco Use Types Packs/Day Years Used Date Smoking Tobacco: Never Assessed Childcare Answer Date Recorded Childcare Unknown 01/04/2019 Employment Answer Date Recorded Employment Unknown 01/04/2019 Sex and Gender Information Value Date Recorded Sex Assigned at Not on file Legal Sex Male 12:14 PM EDT Gender Identity Not on file Sexual Orientation Not on file Plan of Treatment Not on file Medical Devices Not on file
--- OUTSIDE RECORDS SUMMARY | 2025-02-19 02:14 | XMS_ITS | Encounter Summary ---
Author Organization [facility] Address [address] [place] [address] Care Team Providers Care Centerpuncher Name Role Phone Dell Matos MD Primary Care Provider [phone] Lana Raymond NP Unavailable [phone] Reason for Referral * Consultation (Routine) - Closed Specialty Diagnoses / Procedures Referred By Contelliot mello Referred To Contact Family Medicine Diagnoses High triglycerides Procedures NV OFFICE/OUTPATIENT NEW HIGH MDM 60 MINUTES Maida Smith APRN-CNP [address] [facility] [address] [place] [address] Phone: tel: fax: Jared Le, PA [address] [place] [address] Referral ID Status Reason Start Date Expiration Date V isits Requested Visits Authorized [id number] Closed Specialty Services Required 04/11/2024 10/08/2024 1 1 Encounter Details Date Type Department Care Team (Late Contact Info) Description 04/11/2024 Orders Only [facility] [address] [facility] [address] [place] [address] Jeannine Nogueira MA High triglycerides Social History Tobacco Use Types Packs/Day Years Used Date Smoking Tobacco: Never Smokeless Tobacco: Never Sex and Gender Information Value Date Recorded Sex Assigned at Not on file Legal Sex Male 7:25 PM EDT Gender Identity Not on file Sexual Orientation Not on file documented as of this encounter Plan of Treatment Upcoming Encounters Date Type Department Care Team (Late Contact Info) Description 04/09/2025 1:00 PM EDT Office Visit [facility] [address] [place] [address] Maida Smith APRN-SUGAR GRINDER [address] [place] [address] Scheduled Referrals Name Type Priority Associated Diagnoses Orde r Schedule Ambulatory referral to Family Practice Outpatient Referral Routine High triglycerides Expected: 04/11/2024 (Approximate), Expires: 10/09/2024 documented as of this encounter Visit Diagnoses Diagnosis High triglycerides Unspecified disorder of lipoid metabolism documented in this encounter Care Teams Centerpuncher Relationship Specialty Start Date End Date Dell Matos MD [address] [place] [id number] PCP - General Family Medicine 05/17/24 Lana Raymond NP [address] [place] [phone] Referring Physician 05/17/24 documented as of this encounter
--- OUTSIDE RECORDS SUMMARY | 2025-02-19 02:14 | XMS_ITS | Clinical Summary ---
Author Organization [facility] Address [address] [place], [place] [id number] Care Team Providers Care Prosthetic Makeup Designer Name Role Phone Unavailable Primary Care Provider Unavailabl e Encounters Date Type Department Care Team Description 02/15/2025 Abstract Neurology [address] [place], [place] [phone] (Historical), None from Last 3 Months Social History Tobacco Use Types Packs/Day Years Used Date Smoking Tobacco: Never Assessed Sex and Gender Information Value Date Recorded Sex Assigned at Not on file Legal Sex Male 8:03 AM EST Gender Identity Not on file Sexual Orientation Not on file Plan of Treatment Health Maintenance Due Date Last Done Comments Anxiety Screening 1998 Depression Screening 1998 HIV Screening 1998 Hepatitis C Screening 1998 DTaP,Tdap,Td Vaccine (1 - Tdap) 1999 Hepatitis B Vaccine (1 of 3 - 19+ 3-dose series) 04/03 Lipid Screening 2015 Influenza Vaccine (#1) 2025 Procedures Procedure Name Priority Date/Time Associated Diagnosis Comments EXTERNAL IMAGING 02/14/2025 1:50 PM EDT from Last 3 Months Results * EXTERNAL IMAGING (02/14/2025 1:50 PM EDT) Anatomical Region Laterality Modality Other us External Provider [facility] Final Res ult from Last 3 Months Insurance [facility]
--- OUTSIDE RECORDS SUMMARY | 2025-02-19 02:14 | XMS_ITS | Encounter Summary ---
Author Organization [facility] Address [address] [place], [place] [id number] Care Team Providers Care Auto Damage Trainee Name Role Phone Unavailable Primary Care Provider Unavailabl e Source Comments In the event this information is protected by the Federal Confidentiality of Alcohol and Drug AbusePatient Records regulations: The Federal rules restrict any use of the information to criminally investigate or prosecute any alcohol or drug abuse patient.[facility] Reason for Referral * Diagnostic Procedure Only (Routine) - New Request Specialty Diagnoses / Procedures Referred By Janette mello Referred To Contact XR IMAGING Diagnoses Cervical disc disorder with radiculopathy of mid-cervical region Procedures XR CERV OTHER 4V AP/LAT/FLX/EXT RADEX SPINE CERVICAL 4 OR 5 VIEWS Cheri Gandhi APRN.CNP [address] [phone] Phone: tel: fax: [facility] [place] [phone] Referral ID Status Reason Start Date Expiration Date Visits Requested Visits Authorized [id number] New Request Auto-Generat ed Referral 02/16/2025 03/18/2026 1 1 Encounter Details Date Type Department Care Team (Late st Contact Info) Description 02/15/2025 Abstract Neurology [address] [phone] (Historical), None Social History Tobacco Use Types Packs/Day Years Used Date Smoking Tobacco: Never Assessed Sex and Gender Information Value Date Recorded Sex Assigned at Not on file Legal Sex Male 8:03 AM EST Gender Identity Not on file Sexual Orientation Not on file documented as of this encounter Plan of Treatment Scheduled Orders Name Type Priority Associated Diagnoses Orde r Schedule XR CERV OTHER 4V AP/LAT/FLX/EXT Radiology Routine Cervical disc disorder with radiculopathy of mid-cervical region 1 Occurrences starting 02/16/2025 until 03/18/2026 documented as of this encounter Visit Diagnoses Diagnosis Cervical disc disorder with radiculopathy of mid-cervical region- Primary Brachial neuritis or radiculitis nos documented in this encounter
--- NOTE | 2025-02-19 02:22 | ED.UPPEXIN1 ---
HPI HPI - Extremity Injury (Upper) General Chief Complaint: Extremity Injury, Upper Stated Complaint: NECK/SHOULDER PAIN Time Seen by Provider: 02/19/25 02:19 Source: patient Mode of arrival: walk-in Limitations: no limitations History of Present Illness HPI narrative: known cervical disc disease. Was suppose to have neck spine surgery. Now presents with pain extending from his neck into the right shoulder. No fever or upper extremity weakness. Related Data Home Medications ?Medication ?Instructions ?Recorded ?Confirmed No Known Home Medications 02/19/25 02/19/25 Allergies Allergy/AdvReac Type Severity Reaction Status Date / Time Latex, Natural Rubber AdvReac Severe Rash Verified 02/19/25 02:16 Opioid HPI Opioid Management Most Recent Pain and Opioid Data: Last Pain Scale 10 02/19/25, 02:48 Review of Systems ROS Status of ROS 10 or more systems reviewed and unremarkable except as noted in history and below PFSH PFSH Social History Little interest or pleasure in doing things: not at all Feeling down, depressed, or hopeless: not at all Exam Constitutional Vital Signs, click to edit/add: Last Vital Signs Temp 97.8 F 02/19/25 02:11 Pulse 74 02/19/25 02:11 Resp 18 02/19/25 02:11 BP 144/90 H 02/19/25 04:17 Pulse Ox 100 02/19/25 02:11 O2 Del Method Room Air 02/19/25 02:11 Common normals: no apparent distress, average body habitus, oriented x3, no limitations, healthy appearing, alert and well nourished [facility] Common normals: normocephalic and head/scalp atraumatic Eye Common normals: EOMs intact bilaterally and conjunctivae normal Neck & C-Spine Other: C-spine tenderness and right superior trapezius tenderness. No induration or erythema Respiratory Common normals: normal respiratory effort, no retractions, no use of accessory muscles and clear to auscultation bilaterally Cardio Common normals: regular rate, regular rhythm, S1 normal heart sound and S2 normal heart sound Extremity Common normals: normal to inspection and full ROM Neuro Common normals: oriented x3, CN's II-XII intact bilaterally, moves all extremities and no focal motor deficits Psych Appearance: grossly normal Course Vital Signs Vital signs: Vital Signs Temperature 97.8 F 02/19/25 02:11 Pulse Rate 74 02/19/25 02:11 Respiratory Rate 18 02/19/25 02:11 Blood Pressure 159/101 H 02/19/25 02:11 Pulse Oximetry 100 02/19/25 02:11 Oxygen Delivery Method Room Air 02/19/25 02:11 Temperature 97.8 F 02/19/25 02:11 Pulse Rate 74 02/19/25 02:11 Respiratory Rate 18 02/19/25 02:11 Blood Pressure 144/90 H 02/19/25 04:17 Pulse Oximetry 100 02/19/25 02:11 Oxygen Delivery Method Room Air 02/19/25 02:11 MDM - Extremity Injury (Upper) MDM Narrative Medical decision making narrative: patient presents with right cervical neuropathy pain with pain radiating from his neck to his right shoulder and tingling down to his hand. No weakness or fever. Pain interfered with sleep prompting ER visit . Patient treated for his pain. Labs with normal WBC but elevated BS. Normal bicarb. Patient informed he is diabetic and will need close follow up with his PCP. given dose of insulin in the department and discharged with a prescription for glucotrol Lab Data Labs: Lab Results 02/19/25 Range/Units 02:34 WBC 8.3 (4.0-11.0) 10^3/uL RBC 4.96 (4.70-6.10) 10^6/uL Hgb 14.9 (14.0-18.0) g/dL Hct 42.3 (42.0-54.0) % MCV 85.3 (80.0-94.0) fL MCH 30.0 (25.9-34.0) pg MCHC 35.2 (29.9-35.2) g/dL RDW 11.9 (11.0-15.0) % Plt Count 286 (150-450) 10^3/uL MPV 10.6 (9.5-13.5) fL Neut % (Auto) 45.3 (43.0-75.0) % Lymph % (Auto) 45.3 (20.5-60.0) % Kimball % (Auto) 7.1 (1.7-12.0) % Eos % (Auto) 1.4 (0.9-7.0) % Baso % (Auto) 0.7 (0.2-2.0) % Neut # (Auto) 3.8 (1.4-6.5) 10^3/uL Lymph # (Auto) 3.8 (1.2-3.8) 10^3/uL Kimball # (Auto) 0.6 (0.3-0.8) 10^3/uL Eos # (Auto) 0.1 (0.0-0.7) 10^3/uL Baso # (Auto) 0.1 (0.0-0.1) 10^3/uL Abs Immat Gran (auto) 0.02 (0.00-0.03) 10^3/uL Imm/Tot Granulo (auto) 0.2 (0.0-0.5) % Sodium 134 L (136-145) mmol/L Potassium 3.9 (3.5-5.1) mmol/L Chloride 97 L (98-107) mmol/L Carbon Dioxide 25.7 (21.0-32.0) mmol/L Anion Gap 15.2 BUN 11.0 (7.0-18.0) mg/dL Creatinine 1.17 (0.70-1.30) mg/dL Est GFR ( Amer) >60 (>=60 mL/min/1.73m^2) Est GFR (Non-Af Amer) >60 (>=60 mL/min/1.73m^2) BUN/Creatinine Ratio 9.4 Glucose 448 H (74-106) mg/dL Calcium 8.8 (8.5-10.1) mg/dL C-Reactive Protein Cancelled Discharge Plan Discharge Chief Complaint: Extremity Injury, Upper Clinical Impression: Cervical radiculopathy, Diabetes mellitus Patient Disposition: Home, Self-Care Prescriptions / Home Meds: No Action No Known Home Medications Print Language: Slovak Instructions: Cervical Radiculopathy (ED), Type 2 Diabetes Management for Adults (ED) Additional Instructions: follow up with your doctor in the next 2-3 days. Take neurontin three times a day for pain. Glucatrol every day - follow up with PCP reguarding glucose levels. Glucose in ED today was 448. Referrals: MOUNA PAREDES [Primary Care Provider, Unknown] - 1 week Discharge Date/Time: 02/19/25 05:40
[2025-02-19 02:41] LABS: Hematocrit 42.3 % (42.0-54.0); Hemoglobin 14.9 g/dL (14.0-18.0); Immature Granulocytes Abs Auto 0.02 10^3/uL (0.00-0.03); Immature Granulocytes Pct Auto 0.2 % (0.0-0.5); Lymphocytes Absolute Auto 3.8 10^3/uL (1.2-3.8); Mean Corpuscular HGB Conc 35.2 g/dL (29.9-35.2); Mean Corpuscular Hemoglobin 30.0 pg (25.9-34.0); Mean Corpuscular Volume 85.3 fL (80.0-94.0); Platelet Count 286 10^3/uL (150-450); Red Blood Count 4.96 10^6/uL (4.70-6.10); White Blood Count 8.3 10^3/uL (4.0-11.0)
[2025-02-19 02:56] LABS: Anion Gap 15.2; Blood Urea Nitrogen 11.0 mg/dL (7.0-18.0); Calcium 8.8 mg/dL (8.5-10.1); Carbon Dioxide 25.7 mmol/L (21.0-32.0); Chloride 97 mmol/L (98-107); Estimated GFR (African America >60 (>=60 mL/min/1.73m^2); Estimated GFR (Non-African Ame >60 (>=60 mL/min/1.73m^2); Glucose 448 mg/dL (74-106); Potassium 3.9 mmol/L (3.5-5.1); Sodium 134 mmol/L (136-145)
[2025-02-19] MEDS: MAGNESIUM SULFATE IN WATER 2 GM/50 ML PREMIX IV (03:05)
[2025-02-19] MEDS: METHYLPREDNISOLONE SOD SUCC PF 125 MG/2 ML VIAL IVP (03:05)
[2025-02-19] MEDS: ORPHENADRINE 60 MG/2 ML VIAL IV (03:05)
[2025-02-19] MEDS: KETOROLAC TROMETHAMINE 30 MG/ML VIAL IVP (04:15)
[2025-02-19 04:17] VITALS: BP 144/90
[2025-02-19] MEDS: GLIPIZIDE 5 MG TAB.ER.24 PO (05:15)
[2025-02-19] MEDS: GABAPENTIN 300 MG CAPSULE PO (05:16)
== END 2025-02-19 05:40 | disposition home or self-care (01) ==
PROVIDERS: Emergency Provider Internal Medicine; PCP Nurse Practitioner Family
DX: M50.30 Other cervical disc degeneration, unspecified cervical region (principal); E11.9 Type 2 diabetes mellitus without complications
CPT/HCPCS: 36415; 80048; 85025; 86140; 96365; 96375; 99284; J1885; J2360; J2919; J3475